=== PATIENT | female | born 1995 | race African-American/Black ===

== ENCOUNTER 2016-07-16 18:16 | Emergency (ER) | payer OTHER ==
[~2016-07-16] VITALS: Ht 162.6 cm; Wt 60.5 kg
[~2016-07-16 18:16] MED LIST: PIN-X144 MG/1 M PO
[2016-07-16] MEDS ORDERED: PEN-VEE K,VEET500 MG PO (22:24)
[2016-07-16 22:37] VITALS: BP 130/88
== END 2016-07-16 22:39 | disposition home or self-care (01) ==
LOC: EME 18:16
DX: J02.0 Streptococcal pharyngitis (principal); H92.03 Otalgia, bilateral; R50.9 Fever, unspecified
CPT/HCPCS: 87651 90; 99281; 99284